=== PATIENT | male | born 1970 | race Caucasian/White ===

== ENCOUNTER 2019-09-28 08:13 | Emergency (ER) | payer OTHER, SELFPAY ==
[2019-09-28 08:46] VITALS: BP 142/89; PULSE 87; RESP 16; TEMP 36.8; O2SAT 100
--- NOTE | 2019-09-28 08:53 | ED.EYEPROB ---
HPI - Eye Problem General Stated complaint: right eye burning & itchy Time Seen by Provider: 09/28/19 08:53 Source: patient and RN notes reviewed History of Present Illness HPI Narrative: Patient is a 48-year-old male that presents the urgent care with complaints of right eye burning and irritation. Patient states that he believes it is pinkeye in which he may have gotten from his son. 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 Patient denies any trauma, known injury to the eye. Denies any visual change. Denies any matting. No other acute complaints. No acute distress noted. Patient aware of plan of care. Related Data Allergies Allergy/AdvReac Type Severity Reaction Status Date / Time No Known Allergies Allergy Verified 09/28/19 09:08 Review of Systems Review of Systems: Narrative: CONSTITUTIONAL: Denies fever, chills, or sweats. EYES: Reports of right eye itchiness and irritation ENT: Denies rhinorrhea, congestion, sore throat, or otalgia. CARDIOVASCULAR: Denies chest pain, palpitations, or edema. RESPIRATORY: Denies cough or dyspnea. GASTROINTESTINAL: Denies abdominal pain, nausea, vomiting, or diarrhea. GENITOURINARY: Denies dysuria or hematuria. SKIN: Denies rash or itching. MUSCULOSKELETAL: Denies back pain, joint pain, or myalgia. NEUROLOGIC: Denies headache, numbness, or weakness. PMFSH Comments At the time of my signature, I reviewed and agree with the nursing past medical, surgical, social, and family history. There is no relevant family history pertinent to the patient complaint. Exam Narrative: Exam Narrative: GENERAL: This is a well-nourished, well-developed patient, in no apparent distress. HEAD: normocephalic, atraumatic. EYES: PERRL. Sclera clear/white. Vision is grossly intact. Very mild injected conjunctivea noted to the inner canthus of the right eye EARS: External ears normal NOSE: External nose normal with no obvious nasal discharge THROAT: Mucous membranes moist NECK: Neck supple CARDIOVASCULAR: Regular rate and rhythm without murmurs, gallops, or rubs. RESPIRATORY: Clear to auscultation. Breath sounds equal bilaterally. No wheezes, rales, or rhonchi. SKIN: warm, intact with no suspicious lesions or rash, good texture and turgor. NEURO: awake, alert, and oriented to person, place and time. There were no obvious focal neurologic abnormalities. EXTREMITIES: No clubbing, cyanosis, or edema. Course Vital Signs Vital signs: Vital Signs Temperature 98.3 F 09/28/19 08:46 Pulse Rate 87 09/28/19 08:46 Respiratory Rate 16 09/28/19 08:46 Blood Pressure 142/89 H 09/28/19 08:46 Pulse Oximetry 100 09/28/19 08:46 Temperature 98.3 F 09/28/19 08:46 Pulse Rate 87 09/28/19 08:46 Respiratory Rate 16 09/28/19 08:46 Blood Pressure 142/89 H 09/28/19 08:46 Pulse Oximetry 100 09/28/19 08:46 Reviewed?patient is informed that they may have pre-hypertension or hypertension based on a blood pressure reading in the department. I recommend the patient call the primary care provider listed on their discharge instructions or a physician of their choice this week to arrange follow-up for further evaluation of possible pre-hypertension or hypertension. MDM - Eye Problem MDM Narrative Medical decision making narrative: Advised the patient to use warm compress and Claritin for the itching and burning relief. Conjunctivitis is known to subside on its own, without prescription treatment, within 48 hours if antihistamine and warm compress are used appropriately. If you develop any increase in redness or symptoms, use eyedrops to the right eye as prescribed. Be sure to wipe the tip of the applicator between uses with alcohol. Follow-up with PCP within 2 to 5 days if worsening symptoms or failure to improve. Differential Diagnosis Differential diagnosis: Likely corneal abrasion, conjunctivitis, periorbital cellulitis and subconjunctival hemorrhage [facility]
== END 2019-09-28 09:12 | disposition home or self-care (01) ==
PROVIDERS: Emergency Provider Nurse Practitioner Family; PCP Internal Medicine
DX: H10.31 Unspecified acute conjunctivitis, right eye (principal); B30.9 Viral conjunctivitis, unspecified
CPT/HCPCS: 99203; G0463